=== PATIENT | male | born 1940 | race Caucasian/White ===

== ENCOUNTER 2018-07-13 09:22 | Outpatient (REF) | payer MEDICARE, BC, SELFPAY ==
[2018-07-13 22:11] LABS: Anion Gap 7.4 mmol/L (3-11); BUN 21 mg/dL (7-18); CO2 31.6 mmol/L (21.0-32.0); CREATININE 1.17 mg/dL (0.70-1.30); Calcium 9.6 mg/dL (8.5-10.1); Chloride 105 mmol/L (98-107); Cholesterol 178 mg/dL (50-200); Estimated GFR 59.98 (mL/min/1.73m2); Glucose 98 mg/dL (70-100); HDL Cholesterol 55 mg/dL (40-60); LDL CHOLESTEROL 109 mg/dL (<100); Potassium 4.4 mmol/L (3.5-5.1); Sodium 144 mmol/L (136-145); Triglyceride 111 mg/dL (30-150)
== END 2018-07-13 09:42 ==
LOC: NCHCN 09:22
PROVIDERS: PCP Internal Medicine; Visit Provider Internal Medicine
DX: I10 Essential (primary) hypertension (principal); E78.5 Hyperlipidemia, unspecified
CPT/HCPCS: 80048; 80061; 83721

== ENCOUNTER 2019-08-04 15:19 | Outpatient (REF) | payer MEDICARE, BC, SELFPAY ==
[2019-08-04 21:46] LABS: HCT 52.9 % (40.0-50.0); HGB 17.4 g/dL (13.5-17.5); Mean Corp. HGB Concentration 32.9 g/dL (32.0-36.0); Mean Corpuscular Hemoglobin 35.2 pg (27.0-33.0); Mean Corpuscular Volume 106.9 fL (80-95); Mean Platelet Volume 10.1 fL (8.0-11.0); Platelet Count 147 x1000/uL (130-400); RBC 4.95 m/cumm (4.50-6.00); White Blood Cell Count 6.72 k/cumm (4.4-10.8)
[2019-08-04 22:07] LABS: ALT 22 U/L (16-63); AST 24 U/L (15-37); Alkaline Phosphatase 93 U/L (46-116); BUN 20 mg/dL (7-18); Bilirubin, Total 0.8 mg/dL (0.2-1.0); CREATININE 1.26 mg/dL (0.70-1.30); Calcium 9.4 mg/dL (8.5-10.1); Calculated LDL 99 mg/dL (<100); Chloride 105 mmol/L (98-107); Cholesterol 168 mg/dL (<200); Estimated GFR 54.93 (mL/min/1.73m2); Glucose 84 mg/dL (74-106); HDL Cholesterol 44 mg/dL (40-60); Potassium 4.6 mmol/L (3.5-5.1); Sodium 144 mmol/L (136-145); Total Protein 6.9 g/dL (6.4-8.2); Triglyceride 125 mg/dL (<150)
[2019-08-04 22:09] LABS: Microalb ug/mg Crea 55.6 ug/mg Cr
[2019-08-04 22:38] LABS: Uric Acid 3.7 mg/dL (3.5-7.2)
== END 2019-08-04 15:39 ==
LOC: NCHCN 15:19
PROVIDERS: PCP Internal Medicine; Visit Provider Internal Medicine
DX: I10 Essential (primary) hypertension (principal); M10.9 Gout, unspecified; R60.0 Localized edema
CPT/HCPCS: 80053; 80061; 85027; 82043; 82570; 84550

== ENCOUNTER 2019-08-22 13:22 | Outpatient (REF) | payer MEDICARE, BC, SELFPAY ==
[2019-08-22 21:38] LABS: Anion Gap 9.5 mmol/L (3-11); BUN 18 mg/dL (7-18); CO2 30.5 mmol/L (21.0-32.0); CREATININE 1.33 mg/dL (0.70-1.30); Chloride 105 mmol/L (98-107); Estimated GFR 51.61 (mL/min/1.73m2); Glucose 86 mg/dL (74-106); Potassium 4.3 mmol/L (3.5-5.1); Sodium 145 mmol/L (136-145)
== END 2019-08-22 13:42 ==
LOC: NCHCN 13:22
PROVIDERS: PCP Internal Medicine; Visit Provider Internal Medicine
DX: I10 Essential (primary) hypertension (principal)
CPT/HCPCS: 80048

== ENCOUNTER 2019-12-26 21:39 | Outpatient (REF) | payer MEDICARE, BC, SELFPAY ==
[2019-12-26 21:38] LABS: Abs Immature Grans 0.11 k/cumm (0.0-0.09); Absolute Basophil Count 0.02 k/cumm (0.0-0.2); Absolute Lymphocyte Count 1.01 k/cumm (1.2-3.4); Absolute Monocyte Count 0.85 k/cumm (0.11-0.7); Absolute Neutrophil Count 8.12 k/cumm (1.2-6.7); Basophils % 0.2; Eosinophils % 1.9; HCT 49.4 % (40.0-50.0); HGB 16.9 g/dL (13.5-17.5); Immature Grans % 1.1 %; Lymphocytes % 9.8; Mean Corp. HGB Concentration 34.2 g/dL (32.0-36.0); Mean Corpuscular Hemoglobin 35.5 pg (27.0-33.0); Mean Corpuscular Volume 103.8 fL (80-95); Mean Platelet Volume 11.2 fL (8.0-11.0); Monocytes % 8.2; Neutrophils % 78.8; Platelet Count 294 x1000/uL (130-400); RBC 4.76 m/cumm (4.50-6.00); RBC Distribution Width 13.8 % (11.8-14.1); White Blood Cell Count 10.31 k/cumm (4.4-10.8)
[2019-12-26 22:35] LABS: ALT 81 U/L (16-63); AST 48 U/L (15-37); Alkaline Phosphatase 393 U/L (46-116); Anion Gap 9.2 mmol/L (3-11); BUN 62 mg/dL (7-18); Bilirubin, Total 2.4 mg/dL (0.2-1.0); C-Reactive Protein 10.05 mg/dL (0.0-0.3); CO2 30.8 mmol/L (21.0-32.0); Calcium 9.3 mg/dL (8.5-10.1); Chloride 97 mmol/L (98-107); Estimated GFR 32.23 (mL/min/1.73m2); Glucose 112 mg/dL (74-106); Potassium 3.6 mmol/L (3.5-5.1); Sodium 137 mmol/L (136-145); TSH 2.59 uIU/mL (0.36-3.74); Total Protein 6.6 g/dL (6.4-8.2)
[2019-12-26 23:10] LABS: ESR 67 mm/hr (1-20)
[2019-12-27 19:21] LABS: Vitamin B12 799 pg/mL (193-986)
[2019-12-27 19:32] LABS: Creatine Kinase 33 U/L (39-308)
== END 2019-12-26 21:59 ==
LOC: NCHCN 21:39
PROVIDERS: PCP Internal Medicine; Visit Provider Internal Medicine
DX: N17.9 Acute kidney failure, unspecified (principal); N18.3 Chronic kidney disease, stage 3 (moderate); R94.5 Abnormal results of liver function studies; I10 Essential (primary) hypertension; E78.5 Hyperlipidemia, unspecified; M25.559 Pain in unspecified hip; R53.1 Weakness
CPT/HCPCS: 80053; 82550; 85652; 82607; 84443; 85025; 86140

== ENCOUNTER 2020-01-02 14:35 | Outpatient (REF) | payer MEDICARE, BC, SELFPAY ==
[2020-01-02 21:59] LABS: ALT 189 U/L (16-63); AST 194 U/L (15-37); Alkaline Phosphatase 693 U/L (46-116); Anion Gap 9.6 mmol/L (3-11); BUN 37 mg/dL (7-18); C-Reactive Protein 18.15 mg/dL (0.0-0.3); CO2 29.4 mmol/L (21.0-32.0); CREATININE 1.83 mg/dL (0.70-1.30); Calcium 9.9 mg/dL (8.5-10.1); Chloride 97 mmol/L (98-107); Estimated GFR 35.71 (mL/min/1.73m2); Glucose 144 mg/dL (74-106); Potassium 4.3 mmol/L (3.5-5.1); Sodium 136 mmol/L (136-145); Total Protein 6.8 g/dL (6.4-8.2)
[2020-01-02 22:41] LABS: ESR 75 mm/hr (1-20)
== END 2020-01-02 14:55 ==
LOC: NCHCN 14:35
PROVIDERS: PCP Internal Medicine; Visit Provider Internal Medicine
DX: R53.1 Weakness (principal); R94.5 Abnormal results of liver function studies; N17.9 Acute kidney failure, unspecified
CPT/HCPCS: 80053; 85652; 86140

== ENCOUNTER 2020-03-27 15:58 | Outpatient (REF) | payer MEDICARE, BC, SELFPAY ==
[2020-03-27 21:05] LABS: ALT 231 U/L (16-63); AST 247 U/L (15-37); Albumin 2.8 g/dL (3.4-5.0); Alkaline Phosphatase 872 U/L (46-116); Anion Gap 6.3 mmol/L (3-11); BUN 19 mg/dL (7-18); Bilirubin, Total 1.7 mg/dL (0.2-1.0); CO2 26.7 mmol/L (21.0-32.0); CREATININE 1.91 mg/dL (0.70-1.30); Calcium 8.8 mg/dL (8.5-10.1); Chloride 105 mmol/L (98-107); Digoxin 1.07 ng/mL (0.90-2.00); Glucose 109 mg/dL (74-106); Magnesium 1.5 mg/dL (1.8-2.4); Potassium 4.5 mmol/L (3.5-5.1); Sodium 138 mmol/L (136-145); Total Protein 5.9 g/dL (6.4-8.2)
== END 2020-03-27 16:18 ==
LOC: NCHCN 15:58
PROVIDERS: PCP Internal Medicine; Visit Provider Nurse Practitioner Family
DX: R06.09 Other forms of dyspnea (principal); I10 Essential (primary) hypertension; Z79.899 Other long term (current) drug therapy
CPT/HCPCS: 80053; 80162; 83735